=== PATIENT | female | born 1970 | race Caucasian/White ===

== ENCOUNTER → 2022-11-26 | Outpatient (CLI) | payer MEDICAID, SELFPAY ==
--- NOTE | 2022-11-26 06:39 | MRI_ITS ---
EXAM: MR RIGHT LOWER EXTREMITY WITHOUT INTRAVENOUS CONTRAST, KNEE CLINICAL INDICATION: RIGHT knee pain, NKI TECHNIQUE: Multiplanar and multisequence MR images of the right knee without intravenous contrast. COMPARISON: No relevant prior studies available. FINDINGS: BONES/JOINTS: Multiple small foci of subchondral marrow signal alteration involving predominantly the weightbearing aspect of the medial femoral condyle. 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 EXTENSOR MECHANISM: Unremarkable. MEDIAL MENISCUS: Longitudinal horizontal oblique tear of the posterior horn of the medial meniscus. LATERAL MENISCUS: Unremarkable. MEDIAL CAPSULE/SUPPORTING STRUCTURES: Unremarkable. Intact. LATERAL CAPSULE/SUPPORTING STRUCTURES: Unremarkable. Lateral collateral ligamentous complex, inclusive of the popliteal tendon, are intact. ANTERIOR CRUCIATE LIGAMENT: Unremarkable. Intact. POSTERIOR CRUCIATE LIGAMENT: Unremarkable. Intact. MUSCLES: Unremarkable. CARTILAGE: There is a full-thickness 2 high-grade chondral loss involving the median ridge of the patella. FLUID: Unremarkable. No joint effusion. PRESSION: 1. Longitudinal horizontal oblique tear of the posterior horn of the medial meniscus. 2. Multiple small foci of subchondral marrow signal alteration involving predominantly the middle weightbearing aspect of the medial femoral condyle. Electronically Signed: Oseas Cobb MD at 21:21 EDT , MRI/Lower Ext Joint Only (Routine) IMPRESSION: undefined
== END | disposition home or self-care (01) ==
LOC: MRI 06:35
PROVIDERS: Referring Provider Orthopaedic Surgery; Visit Provider Orthopaedic Surgery
DX: M17.11 Unilateral primary osteoarthritis, right knee (principal); M87.00 Idiopathic aseptic necrosis of unspecified bone
CPT/HCPCS: 73721